=== PATIENT | female | born 1995 ===

== ENCOUNTER 2018-07-06 19:16 | Inpatient (IN) | payer OTHER, SELFPAY ==
[~2018-07-06] VITALS: Ht 157.5 cm; Wt 49.8 kg
[2018-07-06] MEDS ORDERED: ACETAMINOPHEN 325 MG TABLET PO ONE (19:30)
[2018-07-06 20:08] LABS: BASOPHILS # (AUTO) 0.02 x10^3/uL (0-0.1); BASOPHILS % (AUTO) 0 % (0-1); EOSINOPHILS % (AUTO) 0 % (1-7); LYMPHOCYTES # (AUTO) 1.31 x10^3/uL (1-3.4); LYMPHOCYTES % (AUTO) 7 % (22-44); MD NO; MEAN CORPUSCULAR HEMOGLOBIN 30.3 pg (27.0-34.8); MEAN CORPUSCULAR HGB CONC 33.5 g/dL (32.4-35.8); MEAN CORPUSCULAR VOLUME 90.5 fL (80-100); MEAN PLATELET VOLUME 7.1 fL (7.4-10.4); MONOCYTES # (AUTO) 0.64 x10^3/uL (0.2-0.8); MONOCYTES % (AUTO) 4 % (2-9); NEUTROPHILS # (AUTO) 15.79 x10^3/uL (1.8-6.8); NEUTROPHILS % (AUTO) 89 % (42-75); PLATELET COUNT 382 x10^3/uL (130-400); RED BLOOD COUNT 4.85 x10^6/uL (3.82-5.3); RED CELL DISTRIBUTION WIDTH 15.6 % (9.6-15.2)
[2018-07-06 20:20] LABS: ALANINE AMINOTRANSFERASE 19 U/L (12-78); ALBUMIN 3.9 g/dL (3.4-5.0); ANION GAP 11 mmol/L (5-15); CALCIUM 8.9 mg/dL (8.5-10.1); CHLORIDE 104 mmol/L (98-107); CREATININE 1.05 mg/dL (0.55-1.02)
[2018-07-06 20:25] LABS: ALKALINE PHOSPHATASE 57 U/L (45-117); BILIRUBIN,TOTAL 0.7 mg/dL (0.2-1.0); TOTAL PROTEIN 8.6 g/dL (6.4-8.2)
[2018-07-06] MEDS ORDERED: SODIUM CHLORIDE 0.9%, 500ML IVBOLUS ONE (20:30)
[2018-07-06] MEDS ORDERED: SODIUM CHLORIDE FLUSH 10ML SYR IVF ONE (20:30)
[2018-07-06] MEDS ORDERED: SODIUM CHLORIDE 0.9% 1,000ML IVBOLUS ONE (20:30)
[2018-07-06] MEDS ORDERED: CEFTRIAXONE PMX 1GM/50ML 50 ML ONE (20:33)
[2018-07-06] MEDS ORDERED: CEFTRIAXONE PMX 1GM/50ML 50 ML IV SCH (21:00)
[2018-07-06 21:03] LABS: CULTURE INDICATED? YES; MICROSCOPIC INDICATED
[2018-07-06] MEDS ORDERED: KETOROLAC 30 MG/1 ML ONE (21:45)
[2018-07-06] MEDS ORDERED: KETOROLAC 30 MG/1 ML IVPush ONE (22:00)
[2018-07-06] MEDS ORDERED: ACETAMINOPHEN 325 MG TABLET PO PRN (22:00)
[2018-07-06] MEDS ORDERED: ASA/APAP/ CAFFEINE TABLET PO PRN (22:00)
[2018-07-06] MEDS ORDERED: ONDANSETRON 2MG/ML, 2ML IVPush PRN (22:00)
[2018-07-06] MEDS ORDERED: morphine SULFATE 10 MG/ML, 1ML IVPush PRN (22:00)
[2018-07-06 22:53] VITALS: BP 98/63
[2018-07-06] MEDS: POTASSIUM CHLORIDE 20 MEQ in LACTATED RINGERS 1,000 ML IV SCH (23:29)
[2018-07-07 02:38] VITALS: BP 94/62
[2018-07-07] MEDS: KETOROLAC 30 MG/1 ML IV PRN ×3 (04:24→19:31)
[2018-07-07 05:22] LABS: BASOPHILS # (AUTO) 0.03 x10^3/uL (0-0.1); BASOPHILS % (AUTO) 0 % (0-1); EOSINOPHILS # (AUTO) 0.03 x10^3/uL (0-0.4); EOSINOPHILS % (AUTO) 0 % (1-7); LYMPHOCYTES # (AUTO) 2.32 x10^3/uL (1-3.4); LYMPHOCYTES % (AUTO) 16 % (22-44); MD NO; MEAN CORPUSCULAR HEMOGLOBIN 30.6 pg (27.0-34.8); MEAN CORPUSCULAR HGB CONC 33.5 g/dL (32.4-35.8); MEAN CORPUSCULAR VOLUME 91.4 fL (80-100); MEAN PLATELET VOLUME 7.2 fL (7.4-10.4); MONOCYTES # (AUTO) 1.16 x10^3/uL (0.2-0.8); MONOCYTES % (AUTO) 8 % (2-9); NEUTROPHILS # (AUTO) 11.06 x10^3/uL (1.8-6.8); NEUTROPHILS % (AUTO) 76 % (42-75); PLATELET COUNT 268 x10^3/uL (130-400); RED BLOOD COUNT 3.74 x10^6/uL (3.82-5.3); RED CELL DISTRIBUTION WIDTH 15.3 % (9.6-15.2)
[2018-07-07 05:29] LABS: ANION GAP 7 mmol/L (5-15); CALCIUM 7.1 mg/dL (8.5-10.1); CHLORIDE 112 mmol/L (98-107)
[2018-07-07 05:30] LABS: CREATININE 0.63 mg/dL (0.55-1.02)
[2018-07-07] MEDS: TAMSULOSIN 0.4 MG CAP.ER.24H PO SCH (07:27)
[2018-07-07 07:47] VITALS: BP 101/66
[2018-07-07] MEDS ORDERED: MIDAZOLAM 1 MG/ML, 2ML ONE (12:30)
[2018-07-07] MEDS ORDERED: FENTANYL PF 100 MCG/2ML ONE (12:30)
[2018-07-07] MEDS ORDERED: SUCCINYLCHOLINE 20 MG/ML, 10ML ONE (12:49)
[2018-07-07] MEDS ORDERED: ROCURONIUM 10 MG/ML,10ML ONE (12:49)
[2018-07-07] MEDS ORDERED: DEXAMETHASONE 4 MG/ML, 1ML ONE (12:49)
[2018-07-07] MEDS ORDERED: PROPOFOL 10 MG/ML, 20ML ONE (12:49)
[2018-07-07] MEDS ORDERED: ONDANSETRON 2MG/ML, 2ML ONE (12:49)
[2018-07-07] MEDS ORDERED: OMNIPAQUE 350 MG/ML, 50 ML BOTTLE IV ONE (13:22)
[2018-07-07] MEDS ORDERED: LIDOCAINE 2%,20 ML JEL.PF.APP MM ONE (13:24)
[2018-07-07] MEDS ORDERED: HYDROmorphone 1 MG/ML, 1ML IV PRN (13:30)
[2018-07-07] MEDS ORDERED: PROMETHAZINE 12.5 MG SUPP PR PRN (13:30)
[2018-07-07] MEDS: PLEASE ENTER ALLERGIES MC SCH ×2 (13:30→19:35)
[2018-07-07] MEDS ORDERED: OXYcodone 5 MG/5 ML ORAL.SOL UDC PO PRN (13:30)
[2018-07-07] MEDS ORDERED: LABETALOL 5MG/ML, 20ML IV PRN (13:30)
[2018-07-07] MEDS ORDERED: ONDANSETRON ODT 8 MG PO PRN (13:30)
[2018-07-07] MEDS ORDERED: ONDANSETRON 2MG/ML, 2ML IV PRN (13:30)
[2018-07-07] MEDS ORDERED: hydrALAzine 20 MG/ML, 1ML IV PRN (13:30)
[2018-07-07] MEDS ORDERED: FENTANYL PF 100 MCG/2ML IV PRN (13:30)
[2018-07-07] MEDS ORDERED: OMNIPAQUE 350 MG/ML, 50 ML BOTTLE ONE (13:42)
[2018-07-07] MEDS: POTASSIUM CHLORIDE 20 MEQ in LACTATED RINGERS 1,000 ML IV SCH (14:18)
[2018-07-07 14:25] VITALS: BP 96/58
[2018-07-07] MEDS ORDERED: OPIUM/BELLADONNA SUPP.RECT 16.2-30 MG PR PRN (14:30)
[2018-07-07] MEDS: PHENAZOPYRIDINE 200 MG TABLET PO SCH ×2 (17:09→20:18)
[2018-07-07 19:45] VITALS: BP 104/69
[2018-07-07] MEDS ORDERED: CEFTRIAXONE 1,000 MG IM SCH (20:00)
[2018-07-07] MEDS ORDERED: CEFTRIAXONE PMX 1GM/50ML 50 ML IV SCH (20:00)
[2018-07-08 00:10] VITALS: BP 107/63
[2018-07-08] MEDS: POTASSIUM CHLORIDE 20 MEQ in LACTATED RINGERS 1,000 ML IV SCH ×2 (01:10→09:54)
[2018-07-08 05:13] VITALS: BP 102/67
[2018-07-08] MEDS: KETOROLAC 30 MG/1 ML IV PRN ×2 (05:17→13:19)
[2018-07-08 06:41] VITALS: BP 102/67
[2018-07-08] MEDS: PHENAZOPYRIDINE 200 MG TABLET PO SCH (08:54)
[2018-07-08] MEDS: TAMSULOSIN 0.4 MG CAP.ER.24H PO SCH (08:55)
[2018-07-08] MEDS ORDERED: LEVO750T6 PO (14:07)
[2018-07-08] MEDS ORDERED: METR-142 PO (14:07)
== END 2018-07-08 15:52 | disposition home or self-care (01) | DRG 853 ==
LOC: ED 22:16 → 4NOR 22:17 → DCLOUNGE 07-08 15:40
PROVIDERS: ADMIT Internal Medicine; ATTEND Family Medicine
PROC: BT1F1ZZ Fluoroscopy of Left Kidney, Ureter and Bladder using Low Osmolar Contrast (ICD-10-PCS; 2018-07-07)
PROC: 0T778DZ Dilation of Left Ureter with Intraluminal Device, Via Natural or Artificial Opening Endoscopic (ICD-10-PCS; principal; 2018-07-07 12:30)
DX: A41.9 Sepsis, unspecified organism (principal); N17.0 Acute kidney failure with tubular necrosis; N13.6 Pyonephrosis; E86.0 Dehydration; E87.6 Hypokalemia; B96.20 Unspecified Escherichia coli [E. coli] as the cause of diseases classified elsewhere; E83.59 Other disorders of calcium metabolism; N29 Other disorders of kidney and ureter in diseases classified elsewhere; Z16.20 Resistance to unspecified antibiotic; F12.90 Cannabis use, unspecified, uncomplicated; Z16.11 Resistance to penicillins; Z16.24 Resistance to multiple antibiotics; Z82.49 Family history of ischemic heart disease and other diseases of the circulatory system; Z83.3 Family history of diabetes mellitus; Z87.440 Personal history of urinary (tract) infections
CPT/HCPCS: 36415; 74176; 74420; 80048; 80053; 81001; 83605; 84703; 85025; 87040; 87077; 87086; 87186; G0378; J0696; J1100; J1885; J2250; J2405; J2704; J3010; J3480; Q9967; C2617; C2625; J0330; J7030; J7040; J7120

== ENCOUNTER 2021-01-23 08:38 | Inpatient (IN) | payer OTHER ==
[~2021-01-23] VITALS: Ht 154.9 cm; Wt 63.0 kg
[~2021-01-23 08:38] MED LIST: LEVO750T6 PO; METR-90 PO
--- NOTE | 2021-01-23 09:02 | NUR ---
GATE ATTENDANT: PT TO ROOM FROM [facility]
--- NOTE | 2021-01-23 09:07 | NUR ---
PT AMBULATORY TO ROOM FROM [facility], PT CHANGED INTO GOWN. MONITORS IN PLACE. PT C/O EPIGASTRIC PAIN WITH N/V SINCE 0200 THIS AM. NADN. CALL LIGHT WITHIN REACH
[2021-01-23 09:25] LABS: MICROSCOPIC AUTO
[2021-01-23] MEDS ORDERED: ONDANSETRON ODT 4 MG ONE (09:31)
[2021-01-23] MEDS ORDERED: FAMOTIDINE 20 MG TABLET ONE (09:31)
[2021-01-23 09:33] LABS: BASOPHILS % (AUTO) 0 % (0-1); EOSINOPHILS % (AUTO) 0 % (1-7); LYMPHOCYTES % (AUTO) 7 % (22-44); MEAN CORPUSCULAR HEMOGLOBIN 31.4 pg (27.0-34.8); MEAN PLATELET VOLUME 7.2 fL (7.4-10.4); MONOCYTES % (AUTO) 3 % (2-9); NEUTROPHILS % (AUTO) 90 % (42-75); PLATELET COUNT 413 x10^3/uL (130-400); RED BLOOD COUNT 4.46 x10^6/uL (3.82-5.3)
--- NOTE | 2021-01-23 09:35 | NUR ---
PT MEDICATED PER EMAR. NADN/VSS. CALL LIGHT WITHIN REACH. BED IN LOWEST POSTION. NO NEEDS AT THIS TIME
--- NOTE | 2021-01-23 09:42 | NUR ---
DR MOCTEZUMA AT BS FOR ED EVAL
[2021-01-23 09:47] LABS: ANION GAP 7 mmol/L (5-15); CALCIUM 8.9 mg/dL (8.5-10.1); CHLORIDE 109 mmol/L (98-107)
[2021-01-23 09:53] LABS: ALANINE AMINOTRANSFERASE 15 U/L (12-78); ALKALINE PHOSPHATASE 64 U/L (45-117); BILIRUBIN,TOTAL 0.6 mg/dL (0.2-1.0); CREATININE 0.78 mg/dL (0.55-1.02); TOTAL PROTEIN 7.8 g/dL (6.4-8.2)
--- NOTE | 2021-01-23 09:56 | NUR ---
PT SITTING ON GURNEY, PIV PLACED, IVF INFUSING. CALL LIGHT WITHIN REACH, BED IN LOWEST POSITION.
[2021-01-23] MEDS ORDERED: FAMOTIDINE 20 MG TABLET PO ONE (10:00)
[2021-01-23] MEDS ORDERED: SODIUM CHLORIDE FLUSH 10ML SYR IVF ONE (10:00)
[2021-01-23] MEDS ORDERED: ONDANSETRON ODT 4 MG PO ONE (10:00)
[2021-01-23] MEDS ORDERED: SODIUM CHLORIDE 0.9% 1,000ML IVBOLUS ONE ×2 (10:00)
[2021-01-23] MEDS ORDERED: MAALOX/HYOSCYAMINE/LIDOCAINE 45 ML BTL PO ONE (10:30)
[2021-01-23] MEDS ORDERED: MAALOX/HYOSCYAMINE/LIDOCAINE 45 ML BTL ONE (10:40)
--- NOTE | 2021-01-23 10:47 | NUR ---
PT MEDICATED PER EMAR. PT SITTING ON AMY, NADN/VSS. CALL LIGHT WITHIN REACH
--- NOTE | 2021-01-23 11:25 | NUR ---
PT TO CT
[2021-01-23] MEDS ORDERED: ONDANSETRON 2MG/ML, 2ML ONE ×2 (11:50→14:20)
[2021-01-23] MEDS ORDERED: KETOROLAC 30 MG/1 ML ONE (11:50)
[2021-01-23] MEDS ORDERED: MORPHINE SULFATE 4 MG/ML, 1ML ONE (11:51)
[2021-01-23] MEDS ORDERED: ONDANSETRON 2MG/ML, 2ML IVPush ONE ×2 (12:00→14:30)
[2021-01-23] MEDS ORDERED: KETOROLAC 30 MG/1 ML IM ONE (12:00)
[2021-01-23] MEDS ORDERED: morphine SULFATE 10 MG/ML, 1ML IVPush ONE (12:00)
--- NOTE | 2021-01-23 12:07 | NUR ---
TASK RN: STRAIGHT CATH URINE OBTAINED AND WALKED TO LAB. PT TOLERATED WELL.
[2021-01-23 12:34] LABS: MICROSCOPIC AUTO
--- NOTE | 2021-01-23 14:11 | NUR ---
PT SITTING ON GURNEY, NADN/VSS. CALL LIGHT WITHIN REACH. BED IN LOWEST POSITION.
[2021-01-23] MEDS ORDERED: HYDROmorphone 1 MG/ML, 1ML INJ ONE (14:20)
--- NOTE | 2021-01-23 14:24 | NUR ---
PT MEDICATED PER EMAR, UPDATED ON POC. NADN/VSS. CALL LIGHT WITHIN REACH. NO NEEDS AT THIS TIME. BED IN LOWEST POSITION. CALL LIGHT WITHIN REACH
[2021-01-23] MEDS ORDERED: HYDROmorphone 1 MG/ML, 1ML INJ IV ONE (14:30)
--- NOTE | 2021-01-23 14:44 | NUR ---
Pt to be admitted to SURGICAL, room 338. Report called to SAMANTHA.
[2021-01-23] MEDS ORDERED: DOCUSATE 100 MG CAPSULE PO PRN (16:00)
[2021-01-23] MEDS ORDERED: ACETAMINOPHEN 325 MG TABLET PO PRN (16:00)
[2021-01-23 16:18] VITALS: BP 115/83
[2021-01-23] MEDS: KETOROLAC 30 MG/1 ML IV PRN (16:59)
[2021-01-23] MEDS: SODIUM CHLORIDE 0.9% 1,000 ML IV SCH (16:59)
[2021-01-23 18:48] VITALS: BP 113/72
[2021-01-23] MEDS: HYDROcodone/APAP 5/325 TABLET PO PRN (20:59)
[2021-01-24 01:24] VITALS: BP 105/67
[2021-01-24] MEDS: KETOROLAC 30 MG/1 ML IV PRN ×2 (01:32→10:46)
[2021-01-24] MEDS: SODIUM CHLORIDE 0.9% 1,000 ML IV SCH ×2 (05:18→23:32)
[2021-01-24 06:09] LABS: BASOPHILS % (AUTO) 0 % (0-1); EOSINOPHILS % (AUTO) 1 % (1-7); LYMPHOCYTES % (AUTO) 19 % (22-44); MEAN CORPUSCULAR HEMOGLOBIN 31.2 pg (27.0-34.8); MEAN CORPUSCULAR HGB CONC 33.6 g/dL (32.4-35.8); MEAN PLATELET VOLUME 7.4 fL (7.4-10.4); MONOCYTES % (AUTO) 7 % (2-9); NEUTROPHILS % (AUTO) 73 % (42-75); PLATELET COUNT 350 x10^3/uL (130-400); RED BLOOD COUNT 3.81 x10^6/uL (3.82-5.3); RED CELL DISTRIBUTION WIDTH 12.7 % (9.6-15.2)
[2021-01-24 06:12] LABS: ALBUMIN 2.9 g/dL (3.4-5.0); ANION GAP 6 mmol/L (5-15); CALCIUM 7.7 mg/dL (8.5-10.1); CHLORIDE 107 mmol/L (98-107)
[2021-01-24 06:16] LABS: ALANINE AMINOTRANSFERASE 14 U/L (12-78); ALKALINE PHOSPHATASE 50 U/L (45-117); BILIRUBIN,TOTAL 0.6 mg/dL (0.2-1.0); CREATININE 0.67 mg/dL (0.55-1.02); TOTAL PROTEIN 6.1 g/dL (6.4-8.2)
[2021-01-24 07:04] VITALS: BP 118/82
[2021-01-24] MEDS: MORPHINE SULFATE 4 MG/ML, 1ML IVPush PRN ×4 (08:04→23:51)
[2021-01-24] MEDS: ONDANSETRON 2MG/ML, 2ML IVPush PRN ×2 (10:46→20:11)
[2021-01-24 13:37] VITALS: BP 105/67
[2021-01-24] MEDS ORDERED: CHLORHEXIDINE 15 ML UDC ONE (16:13)
[2021-01-24] MEDS ORDERED: CHLORHEXIDINE 15 ML UDC PO ONE (16:30)
[2021-01-24] MEDS ORDERED: FENTANYL PF 100 MCG/2ML ONE ×2 (16:41→18:50)
[2021-01-24] MEDS ORDERED: MIDAZOLAM 1 MG/ML, 2ML ONE (16:41)
[2021-01-24] MEDS ORDERED: GLYCOPYRROLATE 0.2MG/1ML, 5ML ONE (17:05)
[2021-01-24] MEDS ORDERED: ROCURONIUM 10 MG/ML,10ML ONE (17:05)
[2021-01-24] MEDS ORDERED: NEOSTIGMINE 1 MG/ML, 10ML ONE (17:05)
[2021-01-24] MEDS ORDERED: ONDANSETRON 2MG/ML, 2ML ONE (17:29)
[2021-01-24] MEDS ORDERED: PROPOFOL 10 MG/ML, 20ML ONE (17:29)
[2021-01-24] MEDS ORDERED: DEXAMETHASONE 4 MG/ML, 1ML ONE (17:29)
[2021-01-24] MEDS ORDERED: CEFAZOLIN 1,000 MG ONE (17:29)
[2021-01-24] MEDS ORDERED: LIDOCAINE-MPF 2% ,5ML ONE (17:29)
[2021-01-24] MEDS ORDERED: MIDAZOLAM 1 MG/ML, 2ML IV PRN (17:30)
[2021-01-24] MEDS ORDERED: MEPERIDINE/PF 25MG/0.5ML IVPush PRN (17:30)
[2021-01-24] MEDS ORDERED: ACETAMINOPHEN 325 MG TABLET PO PRN (17:30)
[2021-01-24] MEDS ORDERED: PROMETHAZINE 25 MG/ML, 1ML IVPush PRN (17:30)
[2021-01-24] MEDS ORDERED: OXYcodone 5 MG/5 ML ORAL.SOL UDC PO PRN (17:30)
[2021-01-24] MEDS ORDERED: OXYcodone 5 MG/5 ML ORAL.SOL UDC ONE (18:50)
[2021-01-24] MEDS: FENTANYL PF 100 MCG/2ML IV PRN ×2 (18:51→19:00)
[2021-01-24] MEDS ORDERED: HYDROmorphone 1 MG/ML, 1ML INJ ONE (19:09)
[2021-01-24] MEDS: HYDROmorphone 1 MG/ML, 1ML INJ IVPush PRN ×2 (19:11→19:16)
[2021-01-24 19:45] VITALS: BP 113/71
[2021-01-25 02:07] VITALS: BP 106/65
[2021-01-25] MEDS: KETOROLAC 30 MG/1 ML IV PRN ×2 (02:15→13:56)
[2021-01-25 05:15] LABS: BASOPHILS % (AUTO) 0 % (0-1); EOSINOPHILS % (AUTO) 0 % (1-7); LYMPHOCYTES % (AUTO) 6 % (22-44); MEAN CORPUSCULAR HEMOGLOBIN 31.3 pg (27.0-34.8); MEAN CORPUSCULAR HGB CONC 33.9 g/dL (32.4-35.8); MEAN PLATELET VOLUME 7.3 fL (7.4-10.4); MONOCYTES % (AUTO) 4 % (2-9); NEUTROPHILS % (AUTO) 89 % (42-75); PLATELET COUNT 326 x10^3/uL (130-400); RED BLOOD COUNT 3.78 x10^6/uL (3.82-5.3)
[2021-01-25 05:27] LABS: ALBUMIN 2.7 g/dL (3.4-5.0); ANION GAP 5 mmol/L (5-15); CALCIUM 7.9 mg/dL (8.5-10.1); CHLORIDE 107 mmol/L (98-107)
[2021-01-25 05:31] LABS: ALANINE AMINOTRANSFERASE 13 U/L (12-78); ALKALINE PHOSPHATASE 53 U/L (45-117); BILIRUBIN,TOTAL 0.4 mg/dL (0.2-1.0); CREATININE 0.62 mg/dL (0.55-1.02); TOTAL PROTEIN 6.3 g/dL (6.4-8.2)
[2021-01-25] MEDS: HYDROcodone/APAP 5/325 TABLET PO PRN ×2 (07:56→13:10)
[2021-01-25 08:08] VITALS: BP 106/66
[2021-01-25] MEDS: SODIUM CHLORIDE 0.9% 1,000 ML IV SCH (13:00)
[2021-01-25 13:18] VITALS: BP 153/91
[2021-01-25] MEDS ORDERED: ACET325T26 PO (14:33)
== END 2021-01-25 15:57 | disposition home or self-care (01) | DRG 661 ==
LOC: ED 09:29 → INTOOBSV 14:05 → EDIP 14:05 → 3N 14:47 → OBSVTOIN 01-24 14:41 → DCLOUNGE 01-25 15:49
PROVIDERS: ADMIT Hospitalist; ATTEND Hospitalist
PROC: 0T9B30Z Drainage of Bladder with Drainage Device, Percutaneous Approach (ICD-10-PCS; 2021-01-23)
PROC: 0T578ZZ Destruction of Left Ureter, Via Natural or Artificial Opening Endoscopic (ICD-10-PCS; 2021-01-24)
PROC: 0T778DZ Dilation of Left Ureter with Intraluminal Device, Via Natural or Artificial Opening Endoscopic (ICD-10-PCS; 2021-01-24)
PROC: 0TF78ZZ Fragmentation in Left Ureter, Via Natural or Artificial Opening Endoscopic (ICD-10-PCS; 2021-01-24)
PROC: 0TB78ZX Excision of Left Ureter, Via Natural or Artificial Opening Endoscopic, Diagnostic (ICD-10-PCS; principal; 2021-01-24 18:00)
DX: N13.2 Hydronephrosis with renal and ureteral calculous obstruction (principal); E86.0 Dehydration; N26.1 Atrophy of kidney (terminal); N36.2 Urethral caruncle; N83.201 Unspecified ovarian cyst, right side; D72.829 Elevated white blood cell count, unspecified; Z87.442 Personal history of urinary calculi; Z88.2 Allergy status to sulfonamides; Z87.440 Personal history of urinary (tract) infections; Z88.0 Allergy status to penicillin; Z79.899 Other long term (current) drug therapy; Z79.01 Long term (current) use of anticoagulants; Z79.891 Long term (current) use of opiate analgesic; Z82.5 Family history of asthma and other chronic lower respiratory diseases; Z83.3 Family history of diabetes mellitus; Z82.49 Family history of ischemic heart disease and other diseases of the circulatory system; Z95.828 Presence of other vascular implants and grafts
CPT/HCPCS: 36415; 74018; 74021; 76000; J3490; 74176; 80053; 81001; 82360; 83690; 84703; 85025; 87086; 87635; 88300; G0378; J0690; J1100; J1170; J1885; J2250; J2405; J2704; J2710; J3010; Q0162; C1769; C2617; J2270; J7030